=== PATIENT | male | born 1985 | race Caucasian/White ===

== ENCOUNTER 2016-08-24 15:44 | Emergency (ER) | payer OTHER ==
[~2016-08-24] VITALS: Ht 177.8 cm; Wt 90.7 kg
[2016-08-24] MEDS ORDERED: NOVOLIN R100 UNIT/1 IJ (15:49)
[2016-08-24] MEDS ORDERED: LANTUSSOLASTAR IJ (15:49)
[2016-08-24] MEDS ORDERED: NORCO 5-325 TA1 EACH PO (16:55)
[2016-08-24 17:23] VITALS: BP 132/83
== END 2016-08-24 17:24 | disposition home or self-care (01) ==
LOC: ER 15:44
DX: S52.501A Unspecified fracture of the lower end of right radius, initial encounter for closed fracture (principal); S52.614A Nondisplaced fracture of right ulna styloid process, initial encounter for closed fracture; E11.9 Type 2 diabetes mellitus without complications; F17.210 Nicotine dependence, cigarettes, uncomplicated; F12.10 Cannabis abuse, uncomplicated; Z79.4 Long term (current) use of insulin; W51.XXXA Accidental striking against or bumped into by another person, initial encounter; Y93.89 Activity, other specified; Y92.89 Other specified places as the place of occurrence of the external cause; Y99.8 Other external cause status